=== PATIENT | female | born 1945 | race Caucasian/White ===

== ENCOUNTER 2019-12-31 09:06 | Emergency (ER) | payer MEDICARE ==
[~2019-12-31] VITALS: Ht 167.6 cm; Wt 68.0 kg
[~2019-12-31 09:06] MED LIST: ADVAIR 100-501 EACH INH; ALENDRONATE SOD70 MG PO; MELATONIN3 MG PO; OMEPRAZOLE40 MG PO; PROAIR RESPICL90 MCG IH; UNICOMPLEX M TA1 TA1 PO; VITAMIN D3400 UNIT PO
[2019-12-31] MEDS ORDERED: ANORO ELLIPTA1 EACH IH (09:28)
[2019-12-31] MEDS ORDERED: CALCIUM500 MG PO (09:29)
[2019-12-31] MEDS ORDERED: NAPROSYN500 MG PO (10:57)
[2019-12-31 11:00] VITALS: BP 146/70
== END 2019-12-31 11:00 | disposition home or self-care (01) ==
LOC: M.ERS 09:06
DX: S82.092A Other fracture of left patella, initial encounter for closed fracture (principal); Z90.49 Acquired absence of other specified parts of digestive tract; W01.0XXA Fall on same level from slipping, tripping and stumbling without subsequent striking against object, initial encounter; Y93.89 Activity, other specified; Y92.89 Other specified places as the place of occurrence of the external cause; Y99.8 Other external cause status